=== PATIENT | female | born 2000 | race African-American/Black ===

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

== ENCOUNTER 2022-02-28 14:29 | Emergency (ER) | payer BC ==
[2022-02-28 14:37] VITALS: BP 120/74; PULSE 106; RESP 19; TEMP 98.3; BMI 22.8
[2022-02-28] MEDS ORDERED: methylPREDNISolone NA SUCC 125 MG/2 ML VIAL IVPUSH ONE (14:49)
[2022-02-28] MEDS ORDERED: FAMOTIDINE 20 MG/50 ML IVPB 20 MG/50 ML MG IVPB ONE ×2 (14:49→15:17)
[2022-02-28] MEDS ORDERED: methylPREDNISolone NA SUCC 125 MG/2 ML VIAL ONE ×2 (15:16→15:17)
== END 2022-02-28 17:43 | disposition home or self-care (01) ==
LOC: JERFT 14:29
PROC: 3E033GC Introduction of Other Therapeutic Substance into Peripheral Vein, Percutaneous Approach (ICD-10-PCS; principal; 2022-02-28)
PROC: 3E033GC Introduction of Other Therapeutic Substance into Peripheral Vein, Percutaneous Approach (ICD-10-PCS; 2022-02-28)
PROC: 3E033GC Introduction of Other Therapeutic Substance into Peripheral Vein, Percutaneous Approach (ICD-10-PCS; 2022-02-28)
DX: T78.40XA Allergy, unspecified, initial encounter (principal)
CPT/HCPCS: 99284-25